=== PATIENT | female | born 1980 | race Two or more races ===

== ENCOUNTER 2018-11-14 15:57 | Emergency (ER) | payer MEDICAID ==
[~2018-11-14] VITALS: Ht 144.8 cm; Wt 66.2 kg
[2018-11-14] MEDS ORDERED: AMOX500C2 PO (16:12)
--- NOTE | 2018-11-14 16:15 | NUR ---
PT BIB SELF C/O SHORT OF BREATH TODAY,ON & OFF CP X 2 WEEKS,SPEAKING FULL SENTENCES, PT IS AAOX4, NOT IN RESPIRATORY DISTRESS, V/S STABLE, KEPT RESTED AND COMFORTABLE.
--- NOTE | 2018-11-14 16:20 | NUR ---
LABS DRAWNED AND SENT TO LAB. AWAITING RESULTS.
--- NOTE | 2018-11-14 16:25 | NUR ---
SEEN AND EXAMINE BY DR. BARNARD.
[2018-11-14 16:40] LABS: BASOPHILS % (AUTO) 0.7 % (0.0-2.0); EOSINOPHILS % (AUTO) 1.7 % (0.0-6.0); HEMATOCRIT 35 % (33-45); HEMOGLOBIN 11.3 g/dL (11.5-14.8); LYMPHOCYTES # (AUTO) 1.7 /CMM (0.8-4.8); LYMPHOCYTES % (AUTO) 38.1 % (20.0-44.0); MEAN CORPUSCULAR HGB CONC 32 g/dl (31.0-36.0); MEAN CORPUSCULAR VOLUME 80 fL (82-100); MONOCYTES # (AUTO) 0.3 /CMM (0.1-1.30); MONOCYTES % (AUTO) 7.6 % (2.0-12.0); NEUTROPHILS # (AUTO) 2.3 /CMM (1.8-8.9); NEUTROPHILS % (AUTO) 51.9 % (43.0-81.0); PLATELET COUNT (AUTO) 307 /CMM (150-450); RED BLOOD CELL COUNT(AUTO) 4.36 MIL/uL (4.0-5.2); WHITE BLOOD COUNT (AUTO) 4.4 K/uL (4.3-11.0)
[2018-11-14 16:47] LABS: CALCIUM, SERUM 9.4 mg/dL (8.5-10.1); CARBON DIOXIDE 25 mmol/L (21-32); CHLORIDE 103 mmol/L (98-107); CREATININE 0.7 mg/dL (0.6-1.3); GLUCOSE 96 mg/dL (74-106); POTASSIUM 3.7 mmol/L (3.5-5.1); SODIUM SERUM 138 mmol/L (136-145); UREA NITROGEN, BLOOD 18 mg/dL (7-18)
[2018-11-14 16:53] LABS: ALANINE AMINOTRANSFERASE 21 U/L (12-78); ALBUMIN 3.9 g/dL (3.4-5.0); ALKALINE PHOSPHATASE 69 U/L (46-116); ASPARTATE AMINOTRANSFERASE 16 U/L (15-37); BILIRUBIN,TOTAL 0.1 mg/dL (0.2-1.0); TOTAL PROTEIN, SERUM 7.4 g/dL (6.4-8.2)
--- NOTE | 2018-11-14 17:36 | NUR ---
IV removed. Catheter intact and site benign. Pressure and 4x4 applied to site. No bleeding noted. Patient discharged to home in stable condition. Written and verbal after care instructions given. Patient verbalizes understanding of instruction.
[2018-11-14 17:38] VITALS: BP 119/71
== END 2018-11-14 17:38 | disposition home or self-care (01) ==
LOC: ER 16:01
DX: R07.89 Other chest pain (principal); F10.10 Alcohol abuse, uncomplicated; F17.200 Nicotine dependence, unspecified, uncomplicated; Y90.9 Presence of alcohol in blood, level not specified
CPT/HCPCS: 36415; 71045; 80048; 80076; 84484; 84702; 85025; 85730; 93005; 99284; A4606; Z7610

== ENCOUNTER 2018-12-29 17:09 | Emergency (ER) | payer MEDICAID ==
[~2018-12-29] VITALS: Ht 144.8 cm; Wt 63.1 kg
[~2018-12-29 17:09] MED LIST: AMOX500C2 PO
[2018-12-29 17:42] VITALS: BP 117/70
[2018-12-29] MEDS ORDERED: KETOROLAC TROMETHAMINE INJ 60 MG/2 ML VIAL IM ONE ×2 (18:00→18:45)
== END 2018-12-29 20:03 | disposition home or self-care (01) ==
LOC: ER 17:13
DX: M25.561 Pain in right knee (principal); M79.651 Pain in right thigh; F10.10 Alcohol abuse, uncomplicated; F17.200 Nicotine dependence, unspecified, uncomplicated; Y90.9 Presence of alcohol in blood, level not specified
CPT/HCPCS: 73551; 73564; 96372; 99283; A4606; J1885; 73552